=== PATIENT | male | born 1975 | race Two or more races ===

== ENCOUNTER 2017-10-20 06:20 | Day surgery (SDC) | payer OTHER ==
[~2017-10-20 06:20] MED LIST: COZAAR100 MG; COZAAR25 MG
== END 2017-10-20 09:50 | disposition home or self-care (01) ==
LOC: AMB-ENDOS 06:20
DX: K64.2 Third degree hemorrhoids (principal); Z12.11 Encounter for screening for malignant neoplasm of colon